=== PATIENT | female | born 1995 | race African-American/Black ===

== ENCOUNTER 2020-01-26 14:51 | Emergency (ER) | payer OTHER ==
[~2020-01-26] VITALS: Ht 157.5 cm; Wt 59.0 kg
[2020-01-26 16:35] LABS: HEMATOCRIT 39.5 % (37.0-47.0); HEMOGLOBIN 13.3 gm/dL (12.0-15.0); MCH 31.8 pg (26.0-34.0); MCHC 33.6 g/dL (28.0-37.0); MCV 94.7 fL (80.0-100.0); PLATELET COUNT 165 thou/uL (150-400); RBC 4.17 mil/uL (4.20-5.00); RDW 14.4 % (10.5-14.5); WBC 6.2 thou/uL (4.0-11.0)
[2020-01-26 16:42] LABS: CALCIUM 8.9 mg/dL (8.5-10.1); CREATININE 0.9 mg/dL (0.6-1.0); POTASSIUM 3.9 mmol/L (3.5-5.1)
[2020-01-26 16:49] LABS: APTT 32.3 Seconds (24.5-32.8); INR 1.2; PROTIME 11.8 Seconds (9.3-11.4)
[2020-01-26 17:05] LABS: ABSOLUTE NEUTROPHILS 2.5 thou/uL (1.4-8.2); PLATELET ESTIMATE NORMAL
[2020-01-26] MEDS ORDERED: REGLAN 5 MG TAB5 MG PO (18:12)
[2020-01-27 04:04] VITALS: BP 97/68
== END 2020-01-26 19:50 | disposition home or self-care (01) ==
LOC: ER 14:51
PROVIDERS: Emergency Medicine
DX: B34.9 Viral infection, unspecified (principal); H53.149 Visual discomfort, unspecified